=== PATIENT | female | born 1990 | race Caucasian/White ===

== ENCOUNTER 2017-05-12 02:44 | Emergency (ER) | payer OTHER ==
[~2017-05-12] VITALS: Ht 165.1 cm; Wt 58.5 kg
[2017-05-12 02:48] VITALS: TEMP 36.9; Ht 165.1 cm; Wt 58.5 kg
[2017-05-12] MEDS ORDERED: ONDANSETRON INJ 2 MG/ML 2 ML VIAL IV STA (03:09)
--- NOTE | 2017-05-12 03:24 | EMERGENCY ROOM VISIT NOTE ---
History First contact with patient: 02:52 Chief Complaint: ABDOMINAL PAIN Stated Complaint: ABD PAIN Nursing Triage Summary: Pt c/o right side abdominal pain starting tonight. Pt states she hasn't had BM in 4 days. Has tried laxatives with no relief. History of Present Illness The patient is a 26 year old female who presents to the Emergency Room with complaints of right-sided abdominal pain. The patient states she has had some mild, generalized abdominal pain for the past 3-4 days. She thought that she could be constipated and has been taking laxatives. She did have one bowel movement after using a suppository. The patient states that she woke up tonight and had pain in the right lower abdomen. This is worse with movement of the abdomen. She rates her discomfort as 7/10. She has had no associated nausea/vomiting. She has had a decreased appetite. She states that she has had increased frequency of urination and increased urgency to urinate over the past week. She was checked for a UTI 1 week ago but states it was negative. She does admit that she had an episode of passing out 1 week ago, but states that she was dehydrated and overheated when this occurred. She has had no similar episodes since. She denies vaginal discharge or chance of . She recently traveled to the [facility] and states that she was there when her abdominal pain began. She reports that she had a ruptured intestine 8 years ago. She never had to have surgery for this and is not sure what the cause was. She states her symptoms today do not feel similar to this. Review of Systems A complete 10 point review of systems was reviewed with the patient with pertinent positives and negatives as per history of present illness. All else were negative. Past Medical/Surgical History Medical Problems: (1) No significant active problems Social History Smoking Status: Never Smoker Housing Status: lives with family Current/Historical Medications Scheduled Control Pills ( Control Pills), 1 TAB PO DAILY Cefdinir (Omnicef), 300 MG PO Q12H Physical Exam Vital Signs Date Time Temp Pulse Resp B/P (MAP) Pulse Ox O2 Delivery O2 Flow Rate FiO2 05/12/17 08:16 62 16 96/54 97 05/12/17 06:36 77 18 97/58 99 Room Air 05/12/17 04:48 72 18 108/65 98 Room Air 05/12/17 02:48 36.9 70 18 116/75 96 Room Air Physical Exam VITALS: Vitals are noted on the nurse's note and reviewed by myself. Vital signs stable. GENERAL: This is a 26-year-old female, in no acute distress, nondiaphoretic, well-developed well-nourished. SKIN: The skin was without rashes. EYES: Pupils equal round and reactive to light and accommodation. MOUTH: Mucous membranes moist. HEART: Regular rate and rhythm without murmurs gallops or rubs. LUNGS: Clear to auscultation bilaterally without wheezes, rales or rhonchi. ABDOMEN: Positive bowel sounds x 4. Soft, nondistended. There is tenderness to palpation in the right lower quadrant. There is no guarding or rebound tenderness. No palpable masses or organomegaly. NEURO: Patient was alert and oriented to person place and time. Medical Decision & Procedures ER Provider Diagnostic Interpretation: ABDOMEN AND PELVIS CT WITH IV AND ORAL CONTRAST FINDINGS: Minimal dependent bibasilar atelectasis. There is no pneumatosis or pneumoperitoneum identified. The imaged inferior cardiac chambers are unremarkable. The liver, spleen, pancreas, adrenal glands and gallbladder are unremarkable. External renal pelvis noted bilaterally. There is bilateral urothelial enhancement involving the calyces, renal pelvis and ureters with mild surrounding inflammatory stranding. No obstructive uropathy. Mild urinary bladder distention. Trace free pelvic fluid, likely physiologic. Uterus and adnexa are unremarkable. Aorta is normal in course and caliber. There is no bulky adenopathy. There is no bowel obstruction or focal bowel wall thickening identified. The appendix is partially visualized within the abdominal right lower quadrant and is air filled appearing noninflamed and nondilated. No right lower quadrant inflammatory changes identified. Soft tissues are unremarkable. Bones appear intact. IMPRESSION: 1. Bilateral urothelial enhancement of the calyces, renal pelves and ureters with mild associated inflammatory stranding and no obstructive uropathy or renal calculi suggests ureteritis/pyelitis from ascending infectious etiology. Correlate with urinalysis. 2. Visualized appendix appears normal without evidence of acute appendicitis. 3. No bowel obstruction or focal bowel wall thickening. Laboratory Results 05/12/17 03:22 Red Blood Count 4.47, Mean Corpuscular Volume 87.7, Mean Corpuscular Hemoglobin 31.1, Mean Corpuscular Hemoglobin Concent 35.5, Mean Platelet Volume 10.1, Neutrophils (%) (Auto) 74.6, Lymphocytes (%) (Auto) 15.9, Monocytes (%) (Auto) 7.9, Eosinophils (%) (Auto) 1.2, Basophils (%) (Auto) 0.2, Neutrophils # (Auto) 9.47, Lymphocytes # (Auto) 2.01, Monocytes # (Auto) 1.00, Eosinophils # (Auto) 0.15, Basophils # (Auto) 0.02 05/12/17 03:22 Test 05/12/17 03:22 05/12/17 05:03 White Blood Count 12.68 K/uL (4.8-10.8) Red Blood Count 4.47 M/uL (4.2-5.4) Hemoglobin 13.9 g/dL (12.0-16.0) Hematocrit 39.2 % (37-47) Mean Corpuscular Volume 87.7 fL (80-100) Mean Corpuscular Hemoglobin 31.1 pg (25-34) Mean Corpuscular Hemoglobin Concent 35.5 g/dl (32-36) Platelet Count 308 K/uL (130-400) Mean Platelet Volume 10.1 fL (7.4-10.4) Neutrophils (%) (Auto) 74.6 % Lymphocytes (%) (Auto) 15.9 % Monocytes (%) (Auto) 7.9 % Eosinophils (%) (Auto) 1.2 % Basophils (%) (Auto) 0.2 % Neutrophils # (Auto) 9.47 K/uL (1.4-6.5) Lymphocytes # (Auto) 2.01 K/uL (1.2-3.4) Monocytes # (Auto) 1.00 K/uL (0.11-0.59) Eosinophils # (Auto) 0.15 K/uL (0-0.5) Basophils # (Auto) 0.02 K/uL (0-0.2) RDW Standard Deviation 40.6 fL (36.4-46.3) RDW Coefficient of Variation 12.5 % (11.5-14.5) Immature Granulocyte % (Auto) 0.2 % Immature Granulocyte # (Auto) 0.03 K/uL (0.00-0.02) Anion Gap 8.0 mmol/L (3-11) Est Creatinine Clear Calc Drug Dose 114.2 ml/min Estimated GFR () 139.3 Estimated GFR (Non- 120.2 BUN/Creatinine Ratio 16.8 (10-20) Calcium Level 8.7 mg/dl (8.5-10.1) Total Bilirubin 0.4 mg/dl (0.2-1) Aspartate Amino Transf (AST/SGOT) 16 U/L (15-37) Alanine Aminotransferase (ALT/SGPT) 30 U/L (12-78) Alkaline Phosphatase 41 U/L (45-117) Total Protein 7.4 gm/dl (6.4-8.2) Albumin 3.2 gm/dl (3.4-5.0) Globulin 4.2 gm/dl (2.5-4.0) Albumin/Globulin Ratio 0.8 (0.9-2) Lipase 91 U/L (73-393) Urine Color YELLOW Urine Appearance CLEAR (CLEAR) Urine pH 7.0 (4.5-7.5) Urine Specific [place] 1.007 (1.000-1.030) Urine Protein 1+ (NEG) Urine Glucose (UA) NEG (NEG) Urine Ketones NEG (NEG) Urine Occult Blood NEG (NEG) Urine Nitrite NEG (NEG) Urine Bilirubin NEG (NEG) Urine Urobilinogen NEG (NEG) Urine Leukocyte Esterase MODERATE (NEG) Urine WBC (Auto) 10-30 /hpf (0-5) Urine RBC (Auto) 0-4 /hpf (0-4) Urine Hyaline Casts (Auto) 1-5 /lpf (0-5) Urine Epithelial Cells (Auto) 10-20 /lpf (0-5) Urine Bacteria (Auto) NEG (NEG) Urine Test NEG (NEG) Medications Administered Medications (Trade) Dose Ordered Sig/Elen Route Start Time Stop Time Status Last Admin Dose Admin Ondansetron HCl (Zofran Inj) 4 mg NOW STAT IV 05/12/17 03:09 05/12/17 03:12 DC 05/12/17 03:29 4 MG Medical Decision Differential diagnosis includes appendicitis, constipation, gastroenteritis, colitis, UTI, ovarian cyst, ovarian torsion, among others. The patient is a 26-year-old female who presents today complaining of right- sided abdominal pain. Labs revealed leukocytosis of 12.6. No concerning electrolyte abnormalities. LFTs within normal limits. Creatinine within normal limits. CT showed possible evidence of ureteritis/pyelitis. Patient does report urinary symptoms recently. Her urinalysis shows moderate leukocyte esterase, 10-30 white blood cells and a small amount of epithelial cells. Patient will be treated on Omnicef given CT findings. Constipation treatment was discussed with the patient. She will follow-up with her primary care provider this week for a recheck or return here for worsening or new/concerning symptoms. Based on the patient's presentation and work up, I feel the patient is stable for outpatient treatment. The patient was educated to return to the emergency department for any worsening of their current condition or new/concerning symptoms. She will follow up with her PCP. Medication Reconcilliation Current Medication List: was personally reviewed by me Blood Pressure Screening Patient's blood pressure: Normal blood pressure Impression Primary Impression: Right lower quadrant abdominal pain Departure Information Dispostion Home / Self-Care Condition GOOD Prescriptions Cefdinir (OMNICEF) 300 Mg Cap 300 MG PO Q12H for 10 Days, #20 CAP Prov: Delmi Francis ., LISA 05/12/17 Referrals [facility] (PCP) Patient Instructions My [facility] Additional Instructions You have been treated in the Emergency Department for your Abdominal Pain. Laboratory results and imaging studies have ruled out any emergent causes for your abdominal pain which would warrant admission or surgery. You were prescribed Omnicef to be taken twice daily as prescribed. This is an antibiotic. All antibiotics have the potential to cause diarrhea. Stop this medication and contact a medical provider if you were to develop any significant adverse side effects including: wheezing, shortness of breath, passing out, vomiting, or a diffuse rash. Always take antibiotics as directed and COMPLETE the ENTIRE course regardless of the improvement of your symptoms. For pain control, you can use the following [id number] medicines (if >12 yo): - Regular strength (325mg/tab) Tylenol (acetaminophen) 2 tabs every 4-6 hours as needed. Do not exceed 12 tablets in a 24 hour period. Avoid taking more than 4 grams (4000 mg) of Tylenol per day. This includes any other sources of acetaminophen you may take on a regular basis. - Regular strength (200 mg/tab) Advil (ibuprofen) 1-2 tabs every 4-6 hours as needed. Do not exceed a dose of 3200 mg per day. Drink plenty of water and stay well-hydrated. You may use Magnesium citrate for your constipation. This can be purchased over the counter. Return to the emergency department if your symptoms persist despite treatment plan outlined above or if the following symptoms occur: worsening pain, vomiting , fevers, or any other new/concerning symptoms.
[2017-05-12 03:34] LABS: BASO % 0.2 %; BASO ABS # 0.02 K/uL (0-0.2); EOS % 1.2 %; EOS ABS # 0.15 K/uL (0-0.5); HEMATOCRIT 39.2 % (37-47); HEMOGLOBIN 13.9 g/dL (12.0-16.0); IG# 0.03 K/uL (0.00-0.02); LYMPH % 15.9 %; LYMPH ABS # 2.01 K/uL (1.2-3.4); MEAN CELL VOLUME 87.7 fL (80-100); MEAN CORPUSCULAR HEMOGLOBIN 31.1 pg (25-34); MEAN CORPUSCULAR HGB CONC 35.5 g/dl (32-36); MEAN PLATELET VOLUME 10.1 fL (7.4-10.4); MONO % 7.9 %; NEUT % 74.6 %; NEUT ABS # 9.47 K/uL (1.4-6.5); PLATELET COUNT 308 K/uL (130-400); RED CELL DISTRIBUTION WIDTH CV 12.5 % (11.5-14.5); RED CELL DISTRIBUTION WIDTH SD 40.6 fL (36.4-46.3); WHITE BLOOD COUNT 12.68 K/uL (4.8-10.8)
[2017-05-12 03:52] LABS: ALBUMIN 3.2 gm/dl (3.4-5.0); CALCIUM 8.7 mg/dl (8.5-10.1); CREATININE 0.66 mg/dl (0.60-1.20); POTASSIUM 3.6 mmol/L (3.5-5.1)
[2017-05-12 03:55] LABS: TOTAL PROTEIN 7.4 gm/dl (6.4-8.2)
[2017-05-12] MEDS ORDERED: BCPILLS PO (05:52)
--- NOTE | 2017-05-12 07:54 | DIAGNOSTIC IMAGING REPORT ---
ABDOMEN AND PELVIS CT WITH IV AND ORAL CONTRAST CT DOSE: 280.61 mGy.cm HISTORY: Acute right lower quadrant abdominal pain RLQ pain TECHNIQUE: Multiaxial CT images of the abdomen and pelvis were performed following the use of intravenous and oral contrast. A dose lowering technique was utilized adhering to the principles of ALARA. COMPARISON STUDY: None. FINDINGS: Minimal dependent bibasilar atelectasis. There is no pneumatosis or pneumoperitoneum identified. The imaged inferior cardiac chambers are unremarkable. The liver, spleen, pancreas, adrenal glands and gallbladder are unremarkable. External renal pelvis noted bilaterally. There is bilateral urothelial enhancement involving the calyces, renal pelvis and ureters with mild surrounding inflammatory stranding. No obstructive uropathy. Mild urinary bladder distention. Trace free pelvic fluid, likely physiologic. Uterus and adnexa are unremarkable. Aorta is normal in course and caliber. There is no bulky adenopathy. There is no bowel obstruction or focal bowel wall thickening identified. The appendix is partially visualized within the abdominal right lower quadrant and is air filled appearing noninflamed and nondilated. No right lower quadrant inflammatory changes identified. Soft tissues are unremarkable. Bones appear intact. IMPRESSION: 1. Bilateral urothelial enhancement of the calyces, renal pelves and ureters with mild associated inflammatory stranding and no obstructive uropathy or renal calculi suggests ureteritis/pyelitis from ascending infectious etiology. Correlate with urinalysis. 2. Visualized appendix appears normal without evidence of acute appendicitis. 3. No bowel obstruction or focal bowel wall thickening. Electronically signed by: Inocencio Chambers M.D. 05/12/2017 7:53 AM Dictated Date/Time: 05/12/2017 7:44 AM
[2017-05-12] MEDS ORDERED: CEFD300C2 PO (08:05)
[2017-05-12 08:16] VITALS: BP 96/54; PULSE 62; O2SAT 97
== END 2017-05-12 08:17 | disposition home or self-care (01) ==
LOC: C.EDB 02:46 → C.EDA 08:17
DX: R10.31 Right lower quadrant pain (principal); D72.829 Elevated white blood cell count, unspecified